=== PATIENT | male | born 1950 | race Two or more races ===

== ENCOUNTER 2018-03-15 09:18 | Outpatient (CLI) | payer OTHER ==
[~2018-03-15 09:18] MED LIST: FOLIC ACID0.4 MG; HYDREA
== END 2018-03-15 09:26 | disposition home or self-care (01) ==
LOC: LAB 09:18
DX: D57.1 Sickle-cell disease without crisis (principal); D51.3 Other dietary vitamin B12 deficiency anemia; D52.0 Dietary folate deficiency anemia; K57.30 Diverticulosis of large intestine without perforation or abscess without bleeding; K51.419 Inflammatory polyps of colon with unspecified complications; B18.2 Chronic viral hepatitis C; B96.81 Helicobacter pylori [H. pylori] as the cause of diseases classified elsewhere; E03.8 Other specified hypothyroidism; D50.8 Other iron deficiency anemias; D51.8 Other vitamin B12 deficiency anemias; I10 Essential (primary) hypertension

== ENCOUNTER → 2018-04-30 08:40 | Outpatient (CLI) | payer OTHER | END | disposition home or self-care (01) | LOC: LAB 08:40 | DX: E11.65 Type 2 diabetes mellitus with hyperglycemia (principal); E10.65 Type 1 diabetes mellitus with hyperglycemia; E03.8 Other specified hypothyroidism; E05.90 Thyrotoxicosis, unspecified without thyrotoxic crisis or storm; E78.2 Mixed hyperlipidemia; E55.9 Vitamin D deficiency, unspecified; D64.89 Other specified anemias; N39.0 Urinary tract infection, site not specified; E21.2 Other hyperparathyroidism; E24.8 Other Cushing's syndrome; E29.1 Testicular hypofunction; E22.1 Hyperprolactinemia; E27.49 Other adrenocortical insufficiency ==

== ENCOUNTER 2018-06-25 09:26 | Outpatient (CLI) | payer OTHER | END 2018-06-25 09:39 | disposition home or self-care (01) | LOC: LAB 09:26 | DX: D57.1 Sickle-cell disease without crisis (principal); D51.3 Other dietary vitamin B12 deficiency anemia; D52.0 Dietary folate deficiency anemia; K57.30 Diverticulosis of large intestine without perforation or abscess without bleeding; B18.2 Chronic viral hepatitis C; K51.418 Inflammatory polyps of colon with other complication; B96.81 Helicobacter pylori [H. pylori] as the cause of diseases classified elsewhere; E03.8 Other specified hypothyroidism; D50.8 Other iron deficiency anemias; D51.8 Other vitamin B12 deficiency anemias; I10 Essential (primary) hypertension ==

== ENCOUNTER 2018-07-15 12:01 | Emergency (ER) | payer OTHER ==
[~2018-07-15] VITALS: Ht 170.2 cm; Wt 63.5 kg
== END 2018-07-15 19:10 | disposition home or self-care (01) ==
LOC: ER 12:01 → CPU-OBS 15:57 → ER 19:10
DX: I47.1 Supraventricular tachycardia (principal); R07.89 Other chest pain

== ENCOUNTER 2018-07-24 15:27 | Emergency (ER) | payer OTHER ==
[~2018-07-24] VITALS: Ht 152.4 cm; Wt 74.8 kg
== END 2018-07-24 18:58 | disposition home or self-care (01) ==
LOC: ER 15:27 → CPU-OBS 15:31 → ER 18:58
DX: R07.89 Other chest pain (principal); D57.80 Other sickle-cell disorders without crisis; I49.8 Other specified cardiac arrhythmias; E03.8 Other specified hypothyroidism

== ENCOUNTER 2018-07-25 08:29 | Outpatient (CLI) | payer OTHER | END 2018-07-25 08:36 | disposition home or self-care (01) | LOC: LAB 08:29 | DX: E03.8 Other specified hypothyroidism (principal) ==

== ENCOUNTER 2018-08-23 09:16 | Outpatient (CLI) | payer OTHER | END 2018-08-23 09:43 | disposition home or self-care (01) | LOC: NUCLEAR 09:16 | DX: I42.8 Other cardiomyopathies (principal) | CPT/HCPCS: 78472; 78496; A9560 ==

== ENCOUNTER 2018-08-26 09:20 | Outpatient (CLI) | payer OTHER | END 2018-08-26 09:21 | disposition home or self-care (01) | LOC: SONOGRAMA 09:20 | DX: B18.2 Chronic viral hepatitis C (principal) ==

== ENCOUNTER → 2018-10-02 07:21 | Outpatient (CLI) | payer OTHER | END | disposition home or self-care (01) | LOC: LAB 07:21 | DX: E03.8 Other specified hypothyroidism (principal); K76.89 Other specified diseases of liver; E78.2 Mixed hyperlipidemia ==

== ENCOUNTER → 2018-11-13 06:36 | Outpatient (CLI) | payer OTHER | END | disposition home or self-care (01) | LOC: LAB 06:36 | DX: D57.1 Sickle-cell disease without crisis (principal); D51.3 Other dietary vitamin B12 deficiency anemia; D52.0 Dietary folate deficiency anemia; K57.30 Diverticulosis of large intestine without perforation or abscess without bleeding; K51.419 Inflammatory polyps of colon with unspecified complications; B18.2 Chronic viral hepatitis C; B96.81 Helicobacter pylori [H. pylori] as the cause of diseases classified elsewhere; E03.8 Other specified hypothyroidism; D50.8 Other iron deficiency anemias; D51.8 Other vitamin B12 deficiency anemias; I10 Essential (primary) hypertension; R97.0 Elevated carcinoembryonic antigen [CEA]; R97.8 Other abnormal tumor markers ==

== ENCOUNTER 2019-01-31 07:07 | Outpatient (CLI) | payer OTHER | END 2019-01-31 07:14 | disposition home or self-care (01) | LOC: LAB 07:07 | DX: D57.1 Sickle-cell disease without crisis (principal); D51.3 Other dietary vitamin B12 deficiency anemia; D52.0 Dietary folate deficiency anemia; K57.30 Diverticulosis of large intestine without perforation or abscess without bleeding; K51.419 Inflammatory polyps of colon with unspecified complications; B18.2 Chronic viral hepatitis C; B96.81 Helicobacter pylori [H. pylori] as the cause of diseases classified elsewhere; E03.8 Other specified hypothyroidism; D50.8 Other iron deficiency anemias; I10 Essential (primary) hypertension ==

== ENCOUNTER 2019-04-17 11:05 | Outpatient (CLI) | payer OTHER ==
[2019-04-17] MEDS ORDERED: HYDREA500 M1 (14:29)
[2019-04-17] MEDS ORDERED: ADULT ASPIRIN81 MG (14:29)
[2019-04-17] MEDS ORDERED: ABANEU-SL TABL1 EACH (14:30)
[2019-04-17] MEDS ORDERED: MULTIVITAMINS1 EAC9 (14:32)
[2019-04-17] MEDS ORDERED: TOPROL XL25 M1 (14:33)
[2019-04-17] MEDS ORDERED: RESTORIL30 M1 (14:34)
== END 2019-04-17 11:11 | disposition home or self-care (01) ==
LOC: LAB 11:05
DX: D68.8 Other specified coagulation defects (principal); H25.012 Cortical age-related cataract, left eye; Z98.42 Cataract extraction status, left eye

== ENCOUNTER 2019-04-17 14:05 | Inpatient (IN) | payer OTHER ==
[~2019-04-17] VITALS: Ht 167.6 cm; Wt 67.1 kg
[2019-04-17] MEDS ORDERED: ADULT ASPIRIN81 MG (14:29)
[2019-04-17] MEDS ORDERED: HYDREA500 M1 (14:29)
[2019-04-17] MEDS ORDERED: ABANEU-SL TABL1 EACH (14:30)
[2019-04-17] MEDS ORDERED: MULTIVITAMINS1 EAC9 (14:32)
[2019-04-17] MEDS ORDERED: TOPROL XL25 M1 (14:33)
[2019-04-17] MEDS ORDERED: RESTORIL30 M1 (14:34)
[2019-04-19] MEDS ORDERED: RESTORIL30 M1 PO (14:03)
[2019-04-19] MEDS ORDERED: ADULT ASPIRIN81 MG PO (14:03)
[2019-04-19] MEDS ORDERED: TOPROL XL25 M1 PO (14:03)
[2019-04-19] MEDS ORDERED: ABANEU-SL TABL1 EACH PO (14:03)
[2019-04-19] MEDS ORDERED: HYDREA500 M1 PO (14:03)
[2019-04-19] MEDS ORDERED: MULTIVITAMINS1 EAC9 PO (14:03)
[2019-04-19] MEDS ORDERED: LEVOTHYROXINE25 MCG PO (14:03)
== END 2019-04-19 14:22 | disposition home or self-care (01) | DRG 812 ==
LOC: ER 14:05 → ICU-2 17:04 → MEDJ 04-18 14:58
PROVIDERS: ADMIT Specialist
PROC: 30233N1 Transfusion of Nonautologous Red Blood Cells into Peripheral Vein, Percutaneous Approach (ICD-10-PCS; principal; 2019-04-17)
DX: D57.40 Sickle-cell thalassemia without crisis (principal); D64.89 Other specified anemias; E03.8 Other specified hypothyroidism; Z86.19 Personal history of other infectious and parasitic diseases

== ENCOUNTER 2019-04-22 09:12 | Outpatient (CLI) | payer OTHER ==
[~2019-04-22 09:12] MED LIST changes: +ABANEU-SL TABL1 EACH; +ABANEU-SL TABL1 EACH PO; +ADULT ASPIRIN81 MG; +ADULT ASPIRIN81 MG PO; +HYDREA500 M1; +HYDREA500 M1 PO; +LEVOTHYROXINE25 MCG PO; +MULTIVITAMINS1 EAC9; +MULTIVITAMINS1 EAC9 PO; +RESTORIL30 M1; +RESTORIL30 M1 PO; +TOPROL XL25 M1; +TOPROL XL25 M1 PO
== END 2019-04-22 09:15 | disposition home or self-care (01) ==
LOC: LAB 09:12
DX: D64.89 Other specified anemias (principal)

== ENCOUNTER 2019-05-26 06:54 | Outpatient (CLI) | payer OTHER | END 2019-05-26 07:03 | disposition home or self-care (01) | LOC: LAB 06:54 | DX: E03.8 Other specified hypothyroidism (principal); N39.0 Urinary tract infection, site not specified; N40.0 Benign prostatic hyperplasia without lower urinary tract symptoms; E11.21 Type 2 diabetes mellitus with diabetic nephropathy; E11.65 Type 2 diabetes mellitus with hyperglycemia ==

== ENCOUNTER 2019-07-22 12:34 | Inpatient (IN) | payer OTHER ==
[~2019-07-22] VITALS: Ht 167.6 cm; Wt 61.2 kg
== END 2019-07-24 16:57 | disposition home or self-care (01) | DRG 812 ==
LOC: ER 12:34 → MEDI 07-23 12:35
PROVIDERS: ADMIT Specialist
PROC: 30233N1 Transfusion of Nonautologous Red Blood Cells into Peripheral Vein, Percutaneous Approach (ICD-10-PCS; principal; 2019-07-23)
DX: D57.819 Other sickle-cell disorders with crisis, unspecified (principal); R50.81 Fever presenting with conditions classified elsewhere; E03.8 Other specified hypothyroidism; I10 Essential (primary) hypertension

== ENCOUNTER → 2019-09-18 07:34 | Outpatient (CLI) | payer OTHER | END | disposition home or self-care (01) | LOC: LAB 07:34 | DX: D57.1 Sickle-cell disease without crisis (principal); D51.3 Other dietary vitamin B12 deficiency anemia; D52.0 Dietary folate deficiency anemia; K52.0 Gastroenteritis and colitis due to radiation; K57.30 Diverticulosis of large intestine without perforation or abscess without bleeding; K51.419 Inflammatory polyps of colon with unspecified complications; B18.2 Chronic viral hepatitis C; B96.81 Helicobacter pylori [H. pylori] as the cause of diseases classified elsewhere; E03.8 Other specified hypothyroidism; D50.8 Other iron deficiency anemias; D51.8 Other vitamin B12 deficiency anemias; I10 Essential (primary) hypertension; D51.1 Vitamin B12 deficiency anemia due to selective vitamin B12 malabsorption with proteinuria ==

== ENCOUNTER 2020-01-27 06:28 | Outpatient (CLI) | payer OTHER | END 2020-01-27 06:36 | disposition home or self-care (01) | LOC: LAB 06:28 | DX: E11.65 Type 2 diabetes mellitus with hyperglycemia (principal); E03.8 Other specified hypothyroidism; D64.89 Other specified anemias; E78.2 Mixed hyperlipidemia; N40.1 Benign prostatic hyperplasia with lower urinary tract symptoms; D51.3 Other dietary vitamin B12 deficiency anemia; D52.0 Dietary folate deficiency anemia; K57.30 Diverticulosis of large intestine without perforation or abscess without bleeding; K51.419 Inflammatory polyps of colon with unspecified complications; B18.2 Chronic viral hepatitis C; B96.81 Helicobacter pylori [H. pylori] as the cause of diseases classified elsewhere; R97.0 Elevated carcinoembryonic antigen [CEA]; R97.20 Elevated prostate specific antigen [PSA]; R97.8 Other abnormal tumor markers; D50.8 Other iron deficiency anemias; L57.1 Actinic reticuloid ==

== ENCOUNTER 2020-07-07 07:45 | Outpatient (CLI) | payer OTHER | END 2020-07-07 07:51 | disposition home or self-care (01) | LOC: LAB 07:45 | PROVIDERS: ATTEND Internal Medicine Hematology & Oncology | DX: D50.8 Other iron deficiency anemias (principal); R97.0 Elevated carcinoembryonic antigen [CEA]; R97.8 Other abnormal tumor markers; I10 Essential (primary) hypertension; D57.1 Sickle-cell disease without crisis; D51.3 Other dietary vitamin B12 deficiency anemia; D52.0 Dietary folate deficiency anemia; K57.30 Diverticulosis of large intestine without perforation or abscess without bleeding; K51.419 Inflammatory polyps of colon with unspecified complications; B18.2 Chronic viral hepatitis C; B96.81 Helicobacter pylori [H. pylori] as the cause of diseases classified elsewhere; E03.8 Other specified hypothyroidism ==

== ENCOUNTER 2020-09-17 07:40 | Outpatient (CLI) | payer OTHER | END 2020-09-17 07:45 | disposition home or self-care (01) | LOC: LAB 07:40 | PROVIDERS: ATTEND Internal Medicine Hematology & Oncology | DX: D50.8 Other iron deficiency anemias (principal); D57.1 Sickle-cell disease without crisis; D51.3 Other dietary vitamin B12 deficiency anemia; D52.0 Dietary folate deficiency anemia; K57.30 Diverticulosis of large intestine without perforation or abscess without bleeding; K51.418 Inflammatory polyps of colon with other complication; B18.2 Chronic viral hepatitis C; B96.81 Helicobacter pylori [H. pylori] as the cause of diseases classified elsewhere; E03.8 Other specified hypothyroidism; I10 Essential (primary) hypertension; D51.8 Other vitamin B12 deficiency anemias; R97.0 Elevated carcinoembryonic antigen [CEA]; R97.20 Elevated prostate specific antigen [PSA] ==

== ENCOUNTER 2020-12-01 07:36 | Outpatient (CLI) | payer OTHER | END 2020-12-01 07:52 | disposition home or self-care (01) | LOC: LAB 07:36 | PROVIDERS: ATTEND Internal Medicine Hematology & Oncology | DX: D64.89 Other specified anemias (principal); E11.65 Type 2 diabetes mellitus with hyperglycemia; N39.0 Urinary tract infection, site not specified; E11.21 Type 2 diabetes mellitus with diabetic nephropathy; E78.2 Mixed hyperlipidemia; Z12.11 Encounter for screening for malignant neoplasm of colon; D50.8 Other iron deficiency anemias; R79.89 Other specified abnormal findings of blood chemistry; K76.89 Other specified diseases of liver; R74.02 Elevation of levels of lactic acid dehydrogenase [LDH]; I10 Essential (primary) hypertension; R97.0 Elevated carcinoembryonic antigen [CEA]; R97.8 Other abnormal tumor markers; D51.8 Other vitamin B12 deficiency anemias; C61 Malignant neoplasm of prostate; D57.1 Sickle-cell disease without crisis; D51.3 Other dietary vitamin B12 deficiency anemia; D52.0 Dietary folate deficiency anemia; K57.30 Diverticulosis of large intestine without perforation or abscess without bleeding; K51.419 Inflammatory polyps of colon with unspecified complications; B18.2 Chronic viral hepatitis C; B96.81 Helicobacter pylori [H. pylori] as the cause of diseases classified elsewhere; E03.8 Other specified hypothyroidism ==

== ENCOUNTER 2021-02-24 07:04 | Outpatient (CLI) | payer OTHER | END 2021-02-24 07:07 | disposition home or self-care (01) | LOC: LAB 07:04 | PROVIDERS: ATTEND Internal Medicine Hematology & Oncology | DX: D50.8 Other iron deficiency anemias (principal); R79.89 Other specified abnormal findings of blood chemistry; I10 Essential (primary) hypertension; R74.02 Elevation of levels of lactic acid dehydrogenase [LDH]; R76.8 Other specified abnormal immunological findings in serum; D51.8 Other vitamin B12 deficiency anemias; R97.0 Elevated carcinoembryonic antigen [CEA]; R97.8 Other abnormal tumor markers; R97.20 Elevated prostate specific antigen [PSA]; C61 Malignant neoplasm of prostate; D52.0 Dietary folate deficiency anemia; D57.1 Sickle-cell disease without crisis; D51.3 Other dietary vitamin B12 deficiency anemia; K57.30 Diverticulosis of large intestine without perforation or abscess without bleeding; K51.419 Inflammatory polyps of colon with unspecified complications; B18.2 Chronic viral hepatitis C; B96.81 Helicobacter pylori [H. pylori] as the cause of diseases classified elsewhere; E03.8 Other specified hypothyroidism; E11.21 Type 2 diabetes mellitus with diabetic nephropathy; E55.9 Vitamin D deficiency, unspecified; E21.1 Secondary hyperparathyroidism, not elsewhere classified; D64.89 Other specified anemias ==

== ENCOUNTER 2021-04-07 08:20 | Outpatient (CLI) | payer OTHER | END 2021-04-07 08:25 | disposition home or self-care (01) | LOC: LAB 08:20 | PROVIDERS: ATTEND Radiology Radiation Oncology | DX: C61 Malignant neoplasm of prostate (principal) ==

== ENCOUNTER 2021-07-09 07:09 | Outpatient (CLI) | payer OTHER | END 2021-07-09 07:14 | disposition home or self-care (01) | LOC: LAB 07:09 | PROVIDERS: ATTEND Internal Medicine Hematology & Oncology | DX: C61 Malignant neoplasm of prostate (principal); D57.1 Sickle-cell disease without crisis; D52.0 Dietary folate deficiency anemia; D51.3 Other dietary vitamin B12 deficiency anemia; K57.30 Diverticulosis of large intestine without perforation or abscess without bleeding; K51.419 Inflammatory polyps of colon with unspecified complications; B18.2 Chronic viral hepatitis C; B96.81 Helicobacter pylori [H. pylori] as the cause of diseases classified elsewhere; E03.8 Other specified hypothyroidism; R97.0 Elevated carcinoembryonic antigen [CEA]; R97.8 Other abnormal tumor markers; R97.20 Elevated prostate specific antigen [PSA]; D50.8 Other iron deficiency anemias; D51.8 Other vitamin B12 deficiency anemias; R79.89 Other specified abnormal findings of blood chemistry ==

== ENCOUNTER → 2021-08-05 07:33 | Outpatient (CLI) | payer OTHER | END | disposition home or self-care (01) | LOC: LAB 07:33 | PROVIDERS: ATTEND Ophthalmology | DX: D68.8 Other specified coagulation defects (principal); H25.012 Cortical age-related cataract, left eye; Z98.42 Cataract extraction status, left eye ==

== ENCOUNTER 2021-11-23 08:34 | Outpatient (CLI) | payer OTHER | END 2021-11-23 08:35 | disposition home or self-care (01) | LOC: LAB 08:34 | PROVIDERS: ATTEND Internal Medicine Hematology & Oncology | DX: D50.8 Other iron deficiency anemias (principal); R79.89 Other specified abnormal findings of blood chemistry; I10 Essential (primary) hypertension; R74.02 Elevation of levels of lactic acid dehydrogenase [LDH]; K76.89 Other specified diseases of liver; D51.8 Other vitamin B12 deficiency anemias; E55.9 Vitamin D deficiency, unspecified; R97.0 Elevated carcinoembryonic antigen [CEA]; R97.8 Other abnormal tumor markers; R97.20 Elevated prostate specific antigen [PSA]; C61 Malignant neoplasm of prostate; D57.1 Sickle-cell disease without crisis; D51.3 Other dietary vitamin B12 deficiency anemia; D52.0 Dietary folate deficiency anemia; K57.30 Diverticulosis of large intestine without perforation or abscess without bleeding; K51.419 Inflammatory polyps of colon with unspecified complications; B18.2 Chronic viral hepatitis C; B96.81 Helicobacter pylori [H. pylori] as the cause of diseases classified elsewhere; E03.8 Other specified hypothyroidism; E11.21 Type 2 diabetes mellitus with diabetic nephropathy; N39.8 Other specified disorders of urinary system; D40.0 Neoplasm of uncertain behavior of prostate; E78.2 Mixed hyperlipidemia; E11.65 Type 2 diabetes mellitus with hyperglycemia; Z12.11 Encounter for screening for malignant neoplasm of colon; D64.89 Other specified anemias; J45.998 Other asthma; N25.81 Secondary hyperparathyroidism of renal origin ==

== ENCOUNTER 2021-11-24 10:11 | Outpatient (CLI) | payer OTHER | END 2021-11-24 10:27 | disposition home or self-care (01) | LOC: LAB 10:11 | PROVIDERS: ATTEND Internal Medicine Hematology & Oncology | DX: E03.8 Other specified hypothyroidism (principal); N39.0 Urinary tract infection, site not specified; D40.0 Neoplasm of uncertain behavior of prostate; E78.2 Mixed hyperlipidemia; E11.65 Type 2 diabetes mellitus with hyperglycemia; Z12.11 Encounter for screening for malignant neoplasm of colon; D64.89 Other specified anemias; N25.81 Secondary hyperparathyroidism of renal origin ==

== ENCOUNTER 2022-05-18 08:12 | Outpatient (CLI) | payer OTHER | END 2022-05-18 08:32 | disposition home or self-care (01) | LOC: LAB 08:12 | PROVIDERS: ATTEND Specialist | DX: E03.9 Hypothyroidism, unspecified (principal); D64.9 Anemia, unspecified; D68.8 Other specified coagulation defects; N25.81 Secondary hyperparathyroidism of renal origin ==

== ENCOUNTER → 2022-06-27 07:41 | Outpatient (CLI) | payer OTHER | END | disposition home or self-care (01) | LOC: LAB 07:41 | PROVIDERS: ATTEND Internal Medicine Hematology & Oncology | DX: D50.8 Other iron deficiency anemias (principal); R79.9 Abnormal finding of blood chemistry, unspecified; I10 Essential (primary) hypertension; R74.02 Elevation of levels of lactic acid dehydrogenase [LDH]; K76.89 Other specified diseases of liver; E55.9 Vitamin D deficiency, unspecified; R97.0 Elevated carcinoembryonic antigen [CEA]; R97.8 Other abnormal tumor markers; R97.20 Elevated prostate specific antigen [PSA]; C61 Malignant neoplasm of prostate; D57.1 Sickle-cell disease without crisis; D51.3 Other dietary vitamin B12 deficiency anemia; D52.0 Dietary folate deficiency anemia; K62.7 Radiation proctitis; K57.30 Diverticulosis of large intestine without perforation or abscess without bleeding; B18.2 Chronic viral hepatitis C; B96.81 Helicobacter pylori [H. pylori] as the cause of diseases classified elsewhere; E03.9 Hypothyroidism, unspecified ==

== ENCOUNTER → 2022-08-12 07:03 | Outpatient (CLI) | payer OTHER | END | disposition home or self-care (01) | LOC: LAB 07:03 | PROVIDERS: ATTEND Internal Medicine Hematology & Oncology | DX: C61 Malignant neoplasm of prostate (principal); N40.0 Benign prostatic hyperplasia without lower urinary tract symptoms; N39.0 Urinary tract infection, site not specified; E78.1 Pure hyperglyceridemia ==

== ENCOUNTER 2022-11-16 06:48 | Outpatient (CLI) | payer OTHER | END 2022-11-16 07:08 | disposition home or self-care (01) | LOC: LAB 06:48 | PROVIDERS: ATTEND Specialist | DX: E11.21 Type 2 diabetes mellitus with diabetic nephropathy (principal); Z13.220 Encounter for screening for lipoid disorders; M00.80 Arthritis due to other bacteria, unspecified joint; E11.69 Type 2 diabetes mellitus with other specified complication; R07.89 Other chest pain; E03.8 Other specified hypothyroidism; D64.89 Other specified anemias; R19.5 Other fecal abnormalities; Z12.5 Encounter for screening for malignant neoplasm of prostate; N39.9 Disorder of urinary system, unspecified; K62.7 Radiation proctitis; K57.30 Diverticulosis of large intestine without perforation or abscess without bleeding; B18.2 Chronic viral hepatitis C ==

== ENCOUNTER 2022-11-16 07:29 | Outpatient (CLI) | payer OTHER | END 2022-11-16 07:43 | disposition home or self-care (01) | LOC: SONOGRAMA 07:29 | PROVIDERS: ATTEND Internal Medicine Gastroenterology | DX: B18.2 Chronic viral hepatitis C (principal); R74.01 Elevation of levels of liver transaminase levels; K80.20 Calculus of gallbladder without cholecystitis without obstruction ==

== ENCOUNTER 2022-11-18 08:20 | Outpatient (CLI) | payer OTHER | END 2022-11-18 08:21 | disposition home or self-care (01) | LOC: LAB 08:20 | PROVIDERS: ATTEND Specialist | DX: E11.21 Type 2 diabetes mellitus with diabetic nephropathy (principal); Z13.220 Encounter for screening for lipoid disorders; M00.80 Arthritis due to other bacteria, unspecified joint; E11.69 Type 2 diabetes mellitus with other specified complication; R07.89 Other chest pain; E03.8 Other specified hypothyroidism; Z12.5 Encounter for screening for malignant neoplasm of prostate; R19.5 Other fecal abnormalities; D64.89 Other specified anemias ==

== ENCOUNTER 2023-02-10 07:06 | Outpatient (CLI) | payer OTHER | END 2023-02-10 07:09 | disposition home or self-care (01) | LOC: LAB 07:06 | PROVIDERS: ATTEND Specialist | DX: D50.8 Other iron deficiency anemias (principal); R79.9 Abnormal finding of blood chemistry, unspecified; I10 Essential (primary) hypertension; R74.02 Elevation of levels of lactic acid dehydrogenase [LDH]; K76.89 Other specified diseases of liver; R97.0 Elevated carcinoembryonic antigen [CEA]; R97.8 Other abnormal tumor markers; R97.20 Elevated prostate specific antigen [PSA]; C61 Malignant neoplasm of prostate; D57.1 Sickle-cell disease without crisis; D51.3 Other dietary vitamin B12 deficiency anemia; D52.0 Dietary folate deficiency anemia; K57.30 Diverticulosis of large intestine without perforation or abscess without bleeding; K51.419 Inflammatory polyps of colon with unspecified complications; B18.2 Chronic viral hepatitis C; B96.81 Helicobacter pylori [H. pylori] as the cause of diseases classified elsewhere; E03.9 Hypothyroidism, unspecified; N39.9 Disorder of urinary system, unspecified; E11.21 Type 2 diabetes mellitus with diabetic nephropathy; E11.65 Type 2 diabetes mellitus with hyperglycemia; D64.89 Other specified anemias; E03.8 Other specified hypothyroidism; K62.7 Radiation proctitis; K80.20 Calculus of gallbladder without cholecystitis without obstruction ==

== ENCOUNTER 2023-05-05 07:40 | Outpatient (CLI) | payer OTHER | END 2023-05-05 07:46 | disposition home or self-care (01) | LOC: LAB 07:40 | PROVIDERS: ATTEND Specialist | DX: N39.9 Disorder of urinary system, unspecified (principal); E11.21 Type 2 diabetes mellitus with diabetic nephropathy; N25.81 Secondary hyperparathyroidism of renal origin; E11.69 Type 2 diabetes mellitus with other specified complication; Z12.5 Encounter for screening for malignant neoplasm of prostate; Z13.220 Encounter for screening for lipoid disorders; E03.8 Other specified hypothyroidism; R07.89 Other chest pain; D64.89 Other specified anemias; D50.8 Other iron deficiency anemias; R79.9 Abnormal finding of blood chemistry, unspecified; I10 Essential (primary) hypertension; R74.02 Elevation of levels of lactic acid dehydrogenase [LDH]; K76.89 Other specified diseases of liver; R97.0 Elevated carcinoembryonic antigen [CEA]; R97.8 Other abnormal tumor markers; R97.20 Elevated prostate specific antigen [PSA]; C61 Malignant neoplasm of prostate; D57.1 Sickle-cell disease without crisis; D51.3 Other dietary vitamin B12 deficiency anemia; D52.0 Dietary folate deficiency anemia; K62.7 Radiation proctitis; K57.30 Diverticulosis of large intestine without perforation or abscess without bleeding; K51.419 Inflammatory polyps of colon with unspecified complications; B18.2 Chronic viral hepatitis C; B96.81 Helicobacter pylori [H. pylori] as the cause of diseases classified elsewhere; E03.9 Hypothyroidism, unspecified ==

== ENCOUNTER → 2023-08-31 08:03 | Outpatient (CLI) | payer OTHER ==
[2023-08-31 09:17] LABS: MEAN CELL VOLUME 87.4 fL (80.0-100.00); MEAN CORPUSCULAR HGB CONC 34.5 g/dl (32.0-36.0); PLATELET COUNT 270 K/uL (150-450); RED BLOOD COUNT 2.31 M/uL (4.00-6.00); RED CELL DISTRIBUTION WIDTH 24.6 % (11.5-14.5)
[2023-08-31 09:48] LABS: MEAN CORPUSCULAR HEMOGLOBIN 30.3 pg (27.00-32.0)
[2023-08-31 09:49] LABS: HEMATOCRIT 20.2 % (39.0-48.0)
[2023-08-31 09:55] LABS: % SATURACION 30.7 % (20-50); ALBUMIN 3.9 gm/dL (3.4-5.0); BILIRUBIN TOTAL 1.67 mg/dL (0.3-1.2); BILIRUBIN,CONJUGATED 0.41 mg/dL (0.0-0.2); BILIRUBIN,UNCONJUGATED 1.26 mg/dL (0.0-0.6); CALCIUM 9.8 mg/dL (8.5-10.1); CREATININE SERUM 1.27 mg/dL (0.70-1.30); FERRITIN 371.9 NG/ML (26-388); FREE TRIODOTIRONINE 2.08 pg/ml (2.18-3.98); GFR 55.59; GLOBULINA 4.1 G/DL (2.4-3.5); POTASSIUM 4.35 mEq/L (3.5-5.1); PROSTATIC SPECIFIC ANTIGEN 0.111 NG/ML (0.010-4.00); T4 FREE 0.91 NG/ML (0.76-1.46); TSH 2.42 uIU/mL (0.358-3.74)
[2023-08-31 11:35] LABS: FOLIC ACID > 20.00 ng/ml (4.78-20)
== END | disposition home or self-care (01) ==
LOC: LAB 08:03
PROVIDERS: ATTEND Specialist
DX: E03.9 Hypothyroidism, unspecified (principal); E11.65 Type 2 diabetes mellitus with hyperglycemia; K75.81 Nonalcoholic steatohepatitis (NASH); E11.21 Type 2 diabetes mellitus with diabetic nephropathy; D50.8 Other iron deficiency anemias; I10 Essential (primary) hypertension; K76.89 Other specified diseases of liver; R97.0 Elevated carcinoembryonic antigen [CEA]; R97.8 Other abnormal tumor markers; R97.20 Elevated prostate specific antigen [PSA]; C61 Malignant neoplasm of prostate; D57.1 Sickle-cell disease without crisis; D51.3 Other dietary vitamin B12 deficiency anemia; K62.7 Radiation proctitis; K57.30 Diverticulosis of large intestine without perforation or abscess without bleeding; K51.419 Inflammatory polyps of colon with unspecified complications; B18.2 Chronic viral hepatitis C; B96.81 Helicobacter pylori [H. pylori] as the cause of diseases classified elsewhere

== ENCOUNTER → 2023-09-18 12:15 | Outpatient (CLI) | payer OTHER ==
[2023-09-18 13:26] LABS: PH,URINE 5.5 (5.0-8.0); URINE APPEARANCE Clear; URINE BILIRRUBIN Negative (NEGATIVE); URINE BLOOD Negative; URINE COLOR Yellow; URINE GLUCOSE Negative (NEGATIVE); URINE LEUKOCYTE Negative; URINE NITRATE Negative; URINE PROTEIN Trace (NEGATIVE); URINE UROBILINOGEN 0.2 E.U./dl
[2023-09-18 13:37] LABS: URINE BACTERIA 1.2 uL (0.0-1933); URINE EPITHELIAL CELLS 0.1 uL (0.0-38.8); URINE RBC 1.2 uL (0.0-20.8); URINE WBC 0.6 uL (0.0-23.2)
== END | disposition home or self-care (01) ==
LOC: LAB 12:15
PROVIDERS: ATTEND Urology
DX: C61 Malignant neoplasm of prostate (principal); N40.0 Benign prostatic hyperplasia without lower urinary tract symptoms; N39.0 Urinary tract infection, site not specified; E29.1 Testicular hypofunction; D64.9 Anemia, unspecified

== ENCOUNTER 2023-11-16 07:12 | Outpatient (CLI) | payer OTHER ==
[2023-11-16 08:49] LABS: PH,URINE 5.5 (5.0-8.0); URINE APPEARANCE Clear; URINE BILIRRUBIN Negative (NEGATIVE); URINE BLOOD Negative; URINE COLOR Yellow; URINE GLUCOSE Negative (NEGATIVE); URINE LEUKOCYTE Negative; URINE NITRATE Negative; URINE PROTEIN Negative (NEGATIVE); URINE UROBILINOGEN 0.2 E.U./dl
[2023-11-16 08:50] LABS: MEAN CORPUSCULAR HGB CONC 34.5 g/dl (32.0-36.0); RED BLOOD COUNT 2.04 M/uL (4.00-6.00); RED CELL DISTRIBUTION WIDTH 22.5 % (11.5-14.5)
[2023-11-16 08:54] LABS: URINE BACTERIA 1.2 uL (0.0-1933); URINE EPITHELIAL CELLS 0.9 uL (0.0-38.8); URINE RBC 0.5 uL (0.0-20.8); URINE WBC 1.6 uL (0.0-23.2)
[2023-11-16 09:21] LABS: MEAN CORPUSCULAR HEMOGLOBIN 34.8 pg (27.00-32.0)
[2023-11-16 09:22] LABS: HEMATOCRIT 20.4 % (39.0-48.0); HEMOGLOBIN 7.1 g/dL (13-16.00)
[2023-11-16 09:25] LABS: PLATELET COUNT 253 K/uL (150-450)
[2023-11-16 09:42] LABS: ALBUMIN 3.9 gm/dL (3.4-5.0); BILIRUBIN TOTAL 1.34 mg/dL (0.3-1.2); CALCIUM 9.7 mg/dL (8.5-10.1); CREATININE SERUM 1.11 mg/dL (0.70-1.30); FREE TRIODOTIRONINE 2.31 pg/ml (2.18-3.98); GFR 64.93; POTASSIUM 4.19 mEq/L (3.5-5.1); T4 FREE 0.83 NG/ML (0.76-1.46); TOTAL PROTEIN 7.9 gm/dL (6.4-8.2)
[2023-11-16 09:43] LABS: C-REACTIVE PROTEIN 0.43 MG/DL (0.00-0.29)
[2023-11-16 09:44] LABS: TSH 0.102 uIU/mL (0.358-3.74)
[2023-11-17 12:04] LABS: free psa < 0.02 ng/mL; total psa < 0.1 ng/mL (0.0-4.0)
== END 2023-11-16 14:20 | disposition home or self-care (01) ==
LOC: LAB 07:12
PROVIDERS: ATTEND Specialist
DX: E03.8 Other specified hypothyroidism (principal); E11.69 Type 2 diabetes mellitus with other specified complication; D64.89 Other specified anemias; R19.5 Other fecal abnormalities; E11.21 Type 2 diabetes mellitus with diabetic nephropathy; N25.81 Secondary hyperparathyroidism of renal origin; N39.9 Disorder of urinary system, unspecified; Z12.5 Encounter for screening for malignant neoplasm of prostate

== ENCOUNTER → 2023-11-19 10:47 | Outpatient (CLI) | payer OTHER | END | disposition home or self-care (01) | LOC: LAB 10:47 | PROVIDERS: ATTEND Specialist | DX: K57.30 Diverticulosis of large intestine without perforation or abscess without bleeding (principal); K80.20 Calculus of gallbladder without cholecystitis without obstruction; B18.2 Chronic viral hepatitis C; K62.7 Radiation proctitis ==

== ENCOUNTER → 2023-12-17 09:27 | Outpatient (CLI) | payer OTHER ==
[2023-12-17 13:20] LABS: ob NEGATIVE (NEGATIVE)
[2023-12-18 10:11] LABS: % FREE PSA < 20.0 % (.); free psa < 0.02 ng/mL; total psa 0.1 ng/mL (0.0-4.0)
== END | disposition home or self-care (01) ==
LOC: LAB 09:27
PROVIDERS: ATTEND Specialist
DX: R19.5 Other fecal abnormalities (principal); N25.81 Secondary hyperparathyroidism of renal origin; Z12.5 Encounter for screening for malignant neoplasm of prostate

== ENCOUNTER 2024-06-21 07:26 | Outpatient (CLI) | payer OTHER ==
[2024-06-21 09:47] LABS: INR 1.06; PARTIAL THROMBOPLASTIN TIME 25.9 SECONDS (22.0-34.0); PROTHROMBIN TIME 11.1 SECONDS (9.0-11.5)
[2024-06-21 10:05] LABS: MEAN CELL VOLUME 96.9 fL (80.0-100.00); MEAN CORPUSCULAR HGB CONC 34.9 g/dl (32.0-36.0); PLATELET COUNT 236 K/uL (150-450); RED BLOOD COUNT 1.76 M/uL (4.00-6.00)
[2024-06-21 10:19] LABS: HEMATOCRIT 17.1 % (39.0-48.0); RED CELL DISTRIBUTION WIDTH 25.5 % (11.5-14.5)
[2024-06-21 10:22] LABS: CREATININE URINE RANDOM 62.1 MG/DL (30-125)
[2024-06-21 10:27] LABS: ALBUMIN 3.8 gm/dL (3.4-5.0); BILIRUBIN TOTAL 1.53 mg/dL (0.3-1.2); BILIRUBIN,CONJUGATED 0.36 mg/dL (0.0-0.2); BILIRUBIN,UNCONJUGATED 1.17 mg/dL (0.0-0.6); CALCIUM 9.7 mg/dL (8.5-10.1); CHOL HDL RATIO 2.2 (0-5.0); CREATININE SERUM 1.12 mg/dL (0.70-1.30); FERRITIN 254.3 NG/ML (26-388); FREE TRIODOTIRONINE 2.04 pg/ml (2.18-3.98); GFR 64.09; GLOBULINA 3.9 G/DL (2.4-3.5); POTASSIUM 4.28 mEq/L (3.5-5.1); PROSTATIC SPECIFIC ANTIGEN 0.094 NG/ML (0.010-4.00); T4 FREE 0.78 NG/ML (0.76-1.46); TOTAL PROTEIN 7.7 gm/dL (6.4-8.2)
[2024-06-21 10:28] LABS: TSH 5.41 uIU/mL (0.358-3.74)
[2024-06-22 13:13] LABS: FOLIC ACID > 20.00 ng/ml (4.78-20)
== END 2024-06-21 07:38 | disposition home or self-care (01) ==
LOC: LAB 07:26
PROVIDERS: ATTEND Internal Medicine Hematology & Oncology
DX: C61 Malignant neoplasm of prostate (principal); D57.1 Sickle-cell disease without crisis; D51.3 Other dietary vitamin B12 deficiency anemia; D52.0 Dietary folate deficiency anemia; K62.7 Radiation proctitis; K57.30 Diverticulosis of large intestine without perforation or abscess without bleeding; K51.419 Inflammatory polyps of colon with unspecified complications; B18.2 Chronic viral hepatitis C; B96.81 Helicobacter pylori [H. pylori] as the cause of diseases classified elsewhere; E03.9 Hypothyroidism, unspecified; D50.8 Other iron deficiency anemias; K76.89 Other specified diseases of liver; R74.02 Elevation of levels of lactic acid dehydrogenase [LDH]; I10 Essential (primary) hypertension; R97.0 Elevated carcinoembryonic antigen [CEA]; D64.9 Anemia, unspecified; Z86.010 Personal history of colon polyps; K80.20 Calculus of gallbladder without cholecystitis without obstruction; E78.2 Mixed hyperlipidemia; E11.21 Type 2 diabetes mellitus with diabetic nephropathy; D68.8 Other specified coagulation defects; N25.81 Secondary hyperparathyroidism of renal origin

== ENCOUNTER → 2024-06-23 10:37 | Outpatient (CLI) | payer OTHER ==
[2024-06-23 11:58] LABS: CREATININE URINE 72.2 MG/DL; URINE PROT QUANT 24HR 10.6 MG/DL
[2024-06-23 12:03] LABS: URINE PROT QUANT 24 HR 76.85 MG/24HR (42-225)
[2024-06-23 12:04] LABS: CREATINE CLEARANCE 27.4 ML/MIN (97-137); CREATININE SERUM 1.33 mg/dL (0.8-1.3)
== END | disposition home or self-care (01) ==
LOC: LAB 10:37
PROVIDERS: ATTEND Specialist
DX: E03.9 Hypothyroidism, unspecified (principal); E78.2 Mixed hyperlipidemia; D64.9 Anemia, unspecified; E11.21 Type 2 diabetes mellitus with diabetic nephropathy

== ENCOUNTER 2024-09-13 08:09 | Outpatient (CLI) | payer OTHER ==
[2024-09-13 10:25] LABS: CREATININE URINE RANDOM 49.5 MG/DL (30-125)
[2024-09-13 10:28] LABS: MEAN CORPUSCULAR HGB CONC 33.5 g/dl (32.0-36.0)
[2024-09-13 10:36] LABS: PH,URINE 5.5 (5.0-8.0); URINE APPEARANCE Clear; URINE BILIRRUBIN Negative (NEGATIVE); URINE BLOOD Negative; URINE COLOR Yellow; URINE GLUCOSE Negative (NEGATIVE); URINE KETONE Negative (NEGATIVE); URINE LEUKOCYTE Negative; URINE NITRATE Negative; URINE PROTEIN Negative (NEGATIVE); URINE RBC 7.3 uL (0.0-20.8); URINE UROBILINOGEN 0.2 E.U./dl
[2024-09-13 10:41] LABS: URINE BACTERIA 0 uL (0.0-1933); URINE CAST 0.15 uL (0.0-1.40); URINE EPITHELIAL CELLS 0.6 uL (0.0-38.8); URINE WBC 0.6 uL (0.0-23.2)
[2024-09-13 10:46] LABS: MEAN CORPUSCULAR HEMOGLOBIN 42.2 pg (27.00-32.0)
[2024-09-13 10:47] LABS: HEMATOCRIT 11.3 % (39.0-48.0); MEAN CELL VOLUME 126.3 fL (80.0-100.00)
[2024-09-13 10:48] LABS: HEMOGLOBIN 3.8 g/dL (13-16.00); PLATELET COUNT 116 K/uL (150-450)
[2024-09-13 11:31] LABS: BILIRUBIN TOTAL 0.98 mg/dL (0.3-1.2); BILIRUBIN,CONJUGATED 0.32 mg/dL (0.0-0.2); BILIRUBIN,UNCONJUGATED 0.66 mg/dL (0.0-0.6); CALCIUM 9.5 mg/dL (8.5-10.1); CREATININE SERUM 1.32 mg/dL (0.70-1.30); FREE TRIODOTIRONINE 2.82 pg/ml (2.18-3.98); GFR 53.02; GLOBULINA 3.7 G/DL (2.4-3.5); PHOSPHOROUS 3.1 mg/dL (2.5-4.9); POTASSIUM 4.11 mEq/L (3.5-5.1); PROSTATIC SPECIFIC ANTIGEN 0.076 NG/ML (0.010-4.00); T4 FREE 1.33 NG/ML (0.76-1.46); TOTAL PROTEIN 7.7 gm/dL (6.4-8.2)
[2024-09-13 11:32] LABS: TSH 0.102 uIU/mL (0.358-3.74); URIC ACID 5.6 mg/dL (3.5-8.5)
[2024-09-13 11:59] LABS: RED CELL DISTRIBUTION WIDTH 20.3 % (11.5-14.5)
== END 2024-09-13 08:11 | disposition home or self-care (01) ==
LOC: LAB 08:09
PROVIDERS: ATTEND Specialist
DX: N18.2 Chronic kidney disease, stage 2 (mild) (principal); I10 Essential (primary) hypertension; R80.9 Proteinuria, unspecified; E03.9 Hypothyroidism, unspecified; E11.21 Type 2 diabetes mellitus with diabetic nephropathy; N39.9 Disorder of urinary system, unspecified; D64.9 Anemia, unspecified; E11.65 Type 2 diabetes mellitus with hyperglycemia; J45.998 Other asthma; K75.81 Nonalcoholic steatohepatitis (NASH); C61 Malignant neoplasm of prostate; N39.0 Urinary tract infection, site not specified; E78.5 Hyperlipidemia, unspecified; N40.0 Benign prostatic hyperplasia without lower urinary tract symptoms

== ENCOUNTER 2024-09-15 07:49 | Outpatient (CLI) | payer OTHER ==
[2024-09-15 08:58] LABS: CREATININE URINE 46.8 MG/DL; URINE PROT QUANT 24HR 6.8 MG/DL
[2024-09-15 10:03] LABS: CREATININE SERUM 1.33 mg/dL (0.8-1.3); URINE PROT QUANT 24 HR 166.6 MG/24HR (42-225)
== END 2024-09-15 07:57 | disposition home or self-care (01) ==
LOC: LAB 07:49
PROVIDERS: ATTEND Specialist
DX: E03.9 Hypothyroidism, unspecified (principal); N39.9 Disorder of urinary system, unspecified; E11.21 Type 2 diabetes mellitus with diabetic nephropathy; D64.9 Anemia, unspecified; E11.65 Type 2 diabetes mellitus with hyperglycemia; J45.998 Other asthma; K75.81 Nonalcoholic steatohepatitis (NASH)

== ENCOUNTER 2024-09-15 08:10 | Inpatient (IN) | payer OTHER ==
[~2024-09-15] VITALS: Ht 167.6 cm; Wt 61.2 kg
[2024-09-15] MEDS ORDERED: 0.9 % SODIUM CHLORIDE 1,000 ML IV SCH ×2 (08:45→11:15)
[2024-09-15 09:42] LABS: MEAN CORPUSCULAR HGB CONC 33.4 g/dl (32.0-36.0)
[2024-09-15 09:57] LABS: ALBUMIN 3.9 gm/dL (3.4-5.0); BILIRUBIN TOTAL 0.88 mg/dL (0.3-1.2); CALCIUM 9.4 mg/dL (8.5-10.1); CREATININE SERUM 1.4 mg/dL (0.70-1.30); GFR 49.54; MEAN CORPUSCULAR HEMOGLOBIN 42.5 pg (27.00-32.0); POTASSIUM 3.89 mEq/L (3.5-5.1); TOTAL PROTEIN 7.9 gm/dL (6.4-8.2)
[2024-09-15 09:58] LABS: MEAN CELL VOLUME 126.1 fL (80.0-100.00)
[2024-09-15 09:59] LABS: HEMOGLOBIN 3.7 g/dL (13-16.00); PLATELET COUNT 95 K/uL (150-450)
[2024-09-15] MEDS ORDERED: PANTOPRAZOLE SODIUM 40 MG/VIAL VIAL IV SCH (11:06)
[2024-09-15 11:36] LABS: RED BLOOD COUNT 0.87 M/uL (4.00-6.00)
[2024-09-15 14:40] LABS: ALBUMIN 3.9 gm/dL (3.4-5.0); CALCIUM 9.4 mg/dL (8.5-10.1); CREATININE SERUM 1.28 mg/dL (0.70-1.30); GFR 54.94; PHOSPHOROUS 3.1 mg/dL (2.5-4.9)
[2024-09-15 14:48] LABS: URINE APPEARANCE Clear; URINE BILIRRUBIN Negative (NEGATIVE); URINE BLOOD Negative; URINE COLOR Yellow; URINE GLUCOSE Negative (NEGATIVE); URINE KETONE Negative (NEGATIVE); URINE LEUKOCYTE Negative; URINE NITRATE Negative; URINE PROTEIN Negative (NEGATIVE); URINE UROBILINOGEN 0.2 E.U./dl
[2024-09-15 14:51] LABS: URINE BACTERIA 12.5 uL (0.0-1933)
[2024-09-15 15:44] LABS: URINE EPITHELIAL CELLS 0.4 uL (0.0-38.8); URINE WBC 0.6 uL (0.0-23.2)
[2024-09-15] MEDS ORDERED: CEFTRIAXONE SODIUM 2,000 MG in 0.9 % SODIUM CHLORIDE 100 ML IV SCH (17:27)
[2024-09-15 17:30] VITALS: BP 136/69; O2SAT 95
[2024-09-15] MEDS ORDERED: ACETAMINOPHEN 500 MG GEL..CAP PO PRN (17:30)
[2024-09-15] MEDS ORDERED: ONDANSETRON HCL 4 MG in 0.9 % SODIUM CHLORIDE 50 ML IV PRN (17:30)
[2024-09-15] MEDS ORDERED: FUROsemide 20 MG/2 ML VIAL IV SCH (17:30)
[2024-09-15] MEDS ORDERED: TEMAZEPAM 15 MG CAPSULE PO SCH (21:00)
[2024-09-15 22:21] LABS: ERYTHROCYTE SEDIMENTATION RATE 8 mm/hr
[2024-09-15 22:22] LABS: INR 1.05; PARTIAL THROMBOPLASTIN TIME 21.9 SECONDS (22.0-34.0); PROTHROMBIN TIME 11.4 SECONDS (9.0-11.5)
[2024-09-15 22:26] LABS: BILIRUBIN TOTAL 0.68 mg/dL (0.3-1.2)
[2024-09-15 22:28] LABS: BILIRUBIN,CONJUGATED 0.21 mg/dL (0.0-0.2); BILIRUBIN,UNCONJUGATED 0.47 mg/dL (0.0-0.6)
[2024-09-15 22:29] LABS: C-REACTIVE PROTEIN 0.38 MG/DL (0.00-0.29)
[2024-09-16] VITALS (18 sets, daily range): BP systolic 102–138; BP diastolic 60–78; O2SAT 96–100
[2024-09-16 00:21] LABS: MEAN CORPUSCULAR HGB CONC 34.1 g/dl (32.0-36.0); RED BLOOD COUNT 1.28 M/uL (4.00-6.00)
[2024-09-16 00:51] LABS: MEAN CORPUSCULAR HEMOGLOBIN 36.7 pg (27.00-32.0)
[2024-09-16 00:53] LABS: HEMATOCRIT 13.7 % (39.0-48.0); HEMOGLOBIN 4.7 g/dL (13-16.00)
[2024-09-16 00:54] LABS: PLATELET COUNT 80 K/uL (150-450)
[2024-09-16 03:34] LABS: RED CELL DISTRIBUTION WIDTH 32.1 % (11.5-14.5)
[2024-09-16] MEDS ORDERED: PANTOPRAZOLE SODIUM 40 MG/VIAL VIAL IV SCH (05:00)
[2024-09-16] MEDS ORDERED: LEVOTHYROXINE SODIUM 25 MCG TABLET PO SCH (06:00)
[2024-09-16] MEDS ORDERED: METOPROLOL SUCCINATE 25 MG TAB.SR.24H PO SCH (09:00)
[2024-09-16] MEDS ORDERED: HYDROXYUREA 500 MG CAP PO SCH (09:00)
[2024-09-16 09:36] LABS: ob POSITIVE (NEGATIVE)
[2024-09-16 09:36] LABS: PLATELET ESTIMATE NORMAL (NORMAL)
[2024-09-16 14:23] LABS: HEMATOCRIT 24.9 % (39.0-48.0); MEAN CELL VOLUME 96.8 fL (80.0-100.00); MEAN CORPUSCULAR HGB CONC 33.9 g/dl (32.0-36.0); RED BLOOD COUNT 2.57 M/uL (4.00-6.00)
[2024-09-16 15:09] LABS: MEAN CORPUSCULAR HEMOGLOBIN 32.6 pg (27.00-32.0)
[2024-09-16 15:10] LABS: HEMOGLOBIN 8.4 g/dL (13-16.00); PLATELET COUNT 72 K/uL (150-450)
[2024-09-16 15:16] LABS: RED CELL DISTRIBUTION WIDTH 21.7 % (11.5-14.5)
[2024-09-17] VITALS: BP 109/64; BP 117/67; O2SAT 100; O2SAT 99
[2024-09-17 01:00] VITALS: BP 109/64; O2SAT 99
[2024-09-17 02:00] VITALS: BP 106/60; O2SAT 99
[2024-09-17 03:00] VITALS: BP 108/57; O2SAT 100
[2024-09-17 04:00] VITALS: BP 115/66; O2SAT 99
[2024-09-17 07:00] VITALS: BP 117/64; O2SAT 100
== END 2024-09-17 09:42 | disposition home or self-care (01) | DRG 811 ==
LOC: ER 08:12 → SEC-K 11:32 → ICU-2 11:32
PROVIDERS: Emergency Medicine; General Practice; ADMIT Internal Medicine; ATTEND Internal Medicine
PROC: 30233N1 Transfusion of Nonautologous Red Blood Cells into Peripheral Vein, Percutaneous Approach (ICD-10-PCS; principal; 2024-09-15)
DX: D64.9 Anemia, unspecified (principal); D57.4 Sickle-cell thalassemia; N17.9 Acute kidney failure, unspecified; E86.0 Dehydration; D63.1 Anemia in chronic kidney disease; E03.9 Hypothyroidism, unspecified; I12.9 Hypertensive chronic kidney disease with stage 1 through stage 4 chronic kidney disease, or unspecified chronic kidney disease; N18.9 Chronic kidney disease, unspecified